=== PATIENT | female | born 1975 | race Caucasian/White ===

== ENCOUNTER 2020-05-09 08:55 | Outpatient (CLI) | payer OTHER, SELFPAY ==
[2020-05-09 09:10] LABS: Basophils Absolute Auto 0.1 K/mm3 (0.0-0.1); Basophils Percent Auto 0.5 % (0.2-1.2); Eosinophils Absolute Auto 0.1 K/mm3 (0-0.3); Eosinophils Percent Auto 0.9 % (0-4.4); Hematocrit 40.5 % (37.0-47.0); Hemoglobin 13.9 g/dL (12.0-15.0); Immature Granulocyte Absolute 0.03 K/mm3 (0.00-0.031); Immature Granulocyte Percent A 0.3 % (0-0.5); Lymphocytes Absolute Auto 2.12 K/mm3 (0.9-3.2); Lymphocytes Percent Auto 23.3 % (18.3-44.2); Mean Corpuscular HGB Conc 34.3 g/dl (32-36); Mean Corpuscular Hemoglobin 31.2 pg (26-34); Mean Corpuscular Volume 90.8 fl (80-100); Mean Platelet Volume 10.7 fl (7.4-10.4); Monocytes Absolute Auto 0.6 K/mm3 (0.1-0.6); Monocytes Percent Auto 6.7 % (2.6-8.5); Neutrophils Absolute Auto 6.2 K/mm3 (1.3-6.7); Neutrophils Percent Auto 68.3 % (45.5-73.1); Platelet Count Result 234 k/mm3 (150-375); Red Blood Count 4.46 M/mm3 (4.2-5.4); White Blood Count 9.1 K/mm3 (4.5-10.0)
[2020-05-09 09:23] LABS: Alanine Aminotransferase 16 U/L (4-35); Albumin Level 4.4 g/dL (3.5-5.1); Alkaline Phosphatase 56 U/L (38-126); Anion Gap 6 mmol/L (8-16); Aspartate Amino Transferase 24 U/L (14-36); Bilirubin,Total 0.4 mg/dL (0.2-1.3); Blood Urea Nitrogen 19 mg/dL (7-17); Calcium 9.6 mg/dL (8.4-10.2); Carbon Dioxide 32 mmol/L (22-30); Chloride 101 mmol/L (98-107); Cholesterol 203 mg/dL (0-200); Estimated Glomerular Filt Rate > 60; Glucose 114 mg/dL (65-105); HDL Direct 53 mg/dL; Potassium 4.7 mmol/L (3.4-5.0); Sodium 139 mmol/L (137-145); Triglycerides 103 mg/dL (<150)
[2020-05-09 09:34] LABS: LDL Cholesterol Direct 135 mg/dL
[2020-05-09 09:53] LABS: Vitamin D 25 Hydroxy 57.9 ng/mL
[2020-05-09 10:06] LABS: Thyroid Stimulating Hormone Reflex 0.763 uIU/mL (0.465-4.68)
== END 2020-05-09 08:56 | disposition home or self-care (01) ==
PROVIDERS: PCP Nurse Practitioner; Visit Provider Nurse Practitioner
DX: Z00.00 Encounter for general adult medical examination without abnormal findings (principal); R53.83 Other fatigue; E55.9 Vitamin D deficiency, unspecified
CPT/HCPCS: 36415; 80053; 80061; 82306; 84443; 85025

== ENCOUNTER 2020-05-16 08:08 | Outpatient (CLI) | payer OTHER, SELFPAY ==
[2020-05-16 08:42] LABS: Hemoglobin A1C 4.9 % (<5.7)
== END 2020-05-16 08:09 | disposition home or self-care (01) ==
PROVIDERS: PCP Nurse Practitioner; Visit Provider Nurse Practitioner
DX: R73.9 Hyperglycemia, unspecified (principal)
CPT/HCPCS: 36415; 83036

== ENCOUNTER 2020-05-22 13:29 | Outpatient (CLI) | payer OTHER, SELFPAY ==
--- NOTE | ~2020-05-22 | XR_ITS ---
EXAMINATION: XR foot LT 2V DATE: 05/22/2020 13:53 INDICATION: Left foot pain at the proximal fifth metatarsal TECHNIQUE: Dorsoplantar and lateral views of the left foot were obtained. COMPARISON: None. FINDINGS: Alignment is normal. No fracture. Mild osteoarthritis at the first metatarsophalangeal joint. Soft ti ssues are unremarkable. IMPRESSION: 1. Mild osteoarthritis at the first metatarsophalangeal joint. No acute osseous abnormality. Reviewed, dictated and finalized at location B.
== END 2020-05-22 13:30 | disposition home or self-care (01) ==
PROVIDERS: PCP Nurse Practitioner; Visit Provider Nurse Practitioner Family
DX: M19.072 Primary osteoarthritis, left ankle and foot (principal)
CPT/HCPCS: 73620

== ENCOUNTER → 2020-07-26 06:43 | Outpatient (CLI) | payer OTHER, SELFPAY ==
[2020-07-26 19:22] LABS: SARS-CoV-2 RNA PCR Negative
== END ==
PROVIDERS: PCP Nurse Practitioner; Visit Provider Internal Medicine Gastroenterology
DX: Z01.812 Encounter for preprocedural laboratory examination (principal); Z20.822 Contact with and (suspected) exposure to COVID-19
CPT/HCPCS: C9803; U0003; U0005

== ENCOUNTER 2020-07-29 00:11 | Day surgery (SDC) | payer OTHER, SELFPAY ==
[2020-07-22 10:10] VITALS: BMI 33.0
[2020-07-29 12:25] VITALS: BMI 33.1
[2020-07-29 12:26] VITALS: BP 138/97; PULSE 87; RESP 14; TEMP 36.5; O2SAT 96
--- NOTE | 2020-07-29 12:38 | WPDANESEPPF ---
Anes - Initial Pre Proc Eval Procedure: Operation Date: 07/29/20 13:15 Proposed Procedures p Screening Colonoscopy - Huey Diaz MD Date/Time: 07/29/20 12:38 Surgeon: Huey Diaz MD Pre Op Diagnosis: neoplasm screening, family hx colon CA Patient Data Age: 44 Gender: F Height: 5 ft 5 in Weight: 90.3 kg Last Vital Signs Temp 36.5 C 07/29/20 12:26 Pulse 87 07/29/20 12:26 Resp 14 07/29/20 12:26 BP 138/97 H 07/29/20 12:26 Pulse Ox 96 07/29/20 12:26 Allergies Allergy/AdvReac Type Severity Reaction Status Date / Time codeine Allergy Severe Difficulty Verified 07/29/20 12:23 Breathing Home Medications Medication Instructions Recorded Confirmed Type cetirizine 10 mg tablet 10 mg PO DAILY 05/08/20 07/29/20 History multivitamin 1 tablet PO DAILY 05/08/20 07/29/20 History phentermine 37.5 mg capsule 37.5 mg PO DAILY #30 cap 07/26/20 07/29/20 Rx Patient hx anesthesia problems: none Family hx anesthesia problems: none PMFSH Past Medical History Medical History Allergies Asthma History of miscarriage History of vaginal delivery Surgical History Surgical History H/O section (~1994) H/O LEEP (~2015) History of appendectomy History of hysterectomy 2016 History of tonsillectomy (~1982) Tubal ligation status (~1998) Family History Family History Father Carcinoma of colon Mother Breast cancer Carcinoma of colon Grandparent Heart disease Social History Social History Smoking status: Never smoker Alcohol intake: unknown Substance use: never Anes - Eval Final PreProcedure Day of Procedure 07/29/20 12:38 Patient weight: obese Heart: regular rate and rhythm Lungs: clear to auscultation Airway: Mallampati scale class 1 Neurological: alert and oriented Last oral intake: >/= 8 hours ASA classification: II Emergent: no Anesthetic plan: proceed Anesthesia type and monitoring: general GIVS and standard monitoring Informed Consent: The patient's anesthetic plan and its attendant risks and benefits were discussed with the patient/family/POA. Questions were solicited and answers provided to the satisfaction of the patient/family/POA.
[2020-07-29] MEDS: LACTATED RINGERS 1,000 ML 150 ML IV CONT (12:45)
--- NOTE | 2020-07-29 13:28 | PM.HPGS ---
History of Present Illness History of Present Illness Consent: Risks, benefits, and alternatives have been discussed and questions answered. Patient agrees to proceed with procedure. Chief complaint: neoplasm screening, family hx colon CA Narrative: Reina Campbell is a 44 year old female with both parents had colon cancer, this is her first colonoscopy Review of Systems Constitutional: Constitutional: Denies headache(s) and Denies weakness Eyes: Eyes: Denies blurry vision ENT: Reports Normal hearing present, Denies headache(s) and Denies neck pain Cardiovascular: Cardiovascular: Denies chest pain and Denies dyspnea Respiratory: Respiratory: Denies dyspnea Gastrointestinal: Gastrointestinal: Reports no additional gastrointestinal complaints Genitourinary: Genitourinary: Denies dysuria Musculoskeletal: Musculoskeletal: Denies neck pain Integumentary/Breasts: Skin/Breast: Denies dry skin Neurologic: Reports Normal hearing present, Denies headache(s) and Denies weakness Psychiatric: Psychiatric: Denies anxiety Endocrine: Endocrine: Denies change in body appearance Hematologic/Lymphatic: Hematologic/Lymphatic: Denies easy bleeding Allergic/Immunologic: Allergic/Immunologic: Denies urticaria PMFSH Past Medical History Medical History Allergies Asthma History of miscarriage History of vaginal delivery Surgical History Surgical History H/O section (~1994) H/O LEEP (~2015) History of appendectomy History of hysterectomy 2016 History of tonsillectomy (~1982) Tubal ligation status (~1998) Family History Family History Father Carcinoma of colon Mother Breast cancer Carcinoma of colon Grandparent Heart disease Social History Social History Smoking status: Never smoker Alcohol intake: unknown Substance use: never Meds Home Medications and Allergies Home Medications Medication Instructions Recorded Confirmed Type cetirizine 10 mg tablet 10 mg PO DAILY 05/08/20 07/29/20 History multivitamin 1 tablet PO DAILY 05/08/20 07/29/20 History phentermine 37.5 mg capsule 37.5 mg PO DAILY #30 cap 07/26/20 07/29/20 Rx Allergies Allergy/AdvReac Type Severity Reaction Status Date / Time codeine Allergy Severe Difficulty Verified 07/29/20 12:23 Breathing Vital Signs Vital Signs - 24 hr 07/29/20 12:26 Temperature 97.7 F Pulse Rate 87 Respiratory Rate 14 Blood Pressure 138/97 H Pulse Oximetry 96 Exam Const: General: comfortable and no acute distress HENMT: General nose exam: Normal nares present Eyes: General: appearance normal, both eyes and all related structures Neck: Neck: no JVD Resp: Auscultation: clear to auscultation bilaterally Cardio: Rate: regular rate Rhythm: regular rhythm GI: Inspection: non-distended GI Palp: Yes Soft to palpation Skin: General skin exam: normal color Neuro: General: gait normal Speech: normal speech Extrem: General: normal to inspection Psych: Mental Status: mental status grossly normal Assessment and Plan Assessment and plan (1) Family history of colon cancer: Code(s): Z80.0 - Family history of malignant neoplasm of digestive organs Status: Acute Assessment and Plan: colonoscopy today
[2020-07-29 13:52] VITALS: BP 79/47; PULSE 73; RESP 20; O2SAT 100
[2020-07-29 14:02] VITALS: BP 104/71; PULSE 73; RESP 27; O2SAT 97
[2020-07-29 14:12] VITALS: BP 117/79; PULSE 60; RESP 25; O2SAT 100
== END 2020-07-29 14:21 | disposition home or self-care (01) ==
PROVIDERS: PCP Nurse Practitioner; Visit Provider Internal Medicine Gastroenterology
PROC: 0DJD8ZZ Inspection of Lower Intestinal Tract, Via Natural or Artificial Opening Endoscopic (ICD-10-PCS; CPT 45378; principal; 2020-07-29 13:15)
DX: Z12.11 Encounter for screening for malignant neoplasm of colon (principal); Z80.0 Family history of malignant neoplasm of digestive organs; K64.8 Other hemorrhoids; K57.30 Diverticulosis of large intestine without perforation or abscess without bleeding; J45.909 Unspecified asthma, uncomplicated; Z90.710 Acquired absence of both cervix and uterus; Z90.49 Acquired absence of other specified parts of digestive tract
CPT/HCPCS: 45378; J2704; J7120

== ENCOUNTER 2020-08-20 16:38 | Outpatient (CLI) | payer OTHER, SELFPAY ==
--- NOTE | ~2020-08-20 | MM_ITS ---
EXAMINATION: MM screening sharri BI w brittanie HISTORY: Screening mammogram, family history of breast cancer in her mother. TECHNIQUE: Craniocaudal and mediolateral oblique 3-D tomosynthesis images were obtained and synthetic 2-D images were generated. CAD analysis was submitted and interpreted. COMPARISON: No prior mammogram is available for comparison at this institution. BREAST PARENCHYMAL COMPOSITION: The breasts are almost entirely fatty. FINDINGS: There is no evidence of suspicious mass, calcification, or architectural distortion to sugg est malignancy in either breast. IMPRESSION: 1. No mammographic evidence of malignancy. 2. Recommend routine screening mammography in one year. BI-RADS Category 1: Negative Reviewed, dictated and finalized at location A.
== END 2020-08-20 16:39 | disposition home or self-care (01) ==
LOC: ANHIMG 16:41
PROVIDERS: PCP Nurse Practitioner; Visit Provider Student in an Organized Health Care Education/Training Program
DX: Z12.31 Encounter for screening mammogram for malignant neoplasm of breast (principal)
CPT/HCPCS: 77063; 77067

== ENCOUNTER 2021-10-13 09:21 | Outpatient (CLI) | payer OTHER, SELFPAY ==
--- NOTE | ~2021-10-13 | MM_ITS ---
EXAMINATION: MM screening sharri BI w brittanie HISTORY: Screening mammogram, family history of breast cancer in her mother. TECHNIQUE: Craniocaudal and mediolateral oblique 3-D tomosynthesis images were obtained and synthetic 2-D images were generated. CAD analysis was submitted and interpreted. COMPARISON: 08/20/2020 BREAST PARENCHYMAL COMPOSITION: The breasts are almost entirely fatty. FINDINGS: RIGHT BREAST: There is no suspicious mass, calcification, or architectural distortion to suggest anna gnancy. There has been no significant interval change. LEFT BREAST: An asymmetry is present in the middle third of the inner breast on the craniocaudal view . IMPRESSION: 1. Left breast asymmetry. 2. Additional mammographic views and possible breast ultrasound are recommended. BI-RADS Category 0: Incomplete: Needs additional imaging evaluation. Reviewed, dictated and finalized at location A. IMPRESSION: 1. Left breast asymmetry. 2. Additional mammographic views and possible breast ultrasound are recommended . BI-RADS Category 0: Incomplete: Needs additional imaging evaluation.
== END 2021-10-13 09:22 | disposition home or self-care (01) ==
LOC: ANHIMG 09:22
PROVIDERS: PCP Family Medicine; Visit Provider Student in an Organized Health Care Education/Training Program
DX: Z12.31 Encounter for screening mammogram for malignant neoplasm of breast (principal); R92.8 Other abnormal and inconclusive findings on diagnostic imaging of breast
CPT/HCPCS: 77063; 77067

== ENCOUNTER 2021-10-28 11:22 | Outpatient (CLI) | payer OTHER, SELFPAY ==
--- NOTE | ~2021-10-28 | MMUS_ITS ---
EXAMINATION: MM diagnostic sharri LT w brittanie, US breast LT limited HISTORY: Follow-up left breast asymmetry TECHNIQUE: Additional 3-D tomosynthesis images of the left breast were performed and synthetic 2-D im ages were generated. CAD analysis was submitted and interpreted. High resolution Limited left breast ultrasound was performed. COMPARISON: Comparison to multiple prior studies sequentially, with oldest reviewed study dated 08/20. BREAST PARENCHYMAL COMPOSITION: Breast composed of scattered areas of fibroglandular density FINDINGS: MAMMOGRAPHIC FINDINGS: There are no suspicious masses, calcifications or architectural distortion in the left breast to sugg est malignancy. ULTRASOUND: Limited left breast ultrasound: Normal heterogeneous echotexture without focal solid or cystic mass. IMPRESSION: 1. No evidence for malignancy in the left breast. 2. Routine yearly screening mammogram and regular clinical breast examination are recommended. BI-RADS Category 1: Negative Reviewed, dictated and finalized at location A. IMPRESSION: 1. No evidence for malignancy in the left breast. 2. Routine yearly screening mammogram and regular clinical breast examination a re recommended. BI-RADS Category 1: Negative
== END 2021-10-28 11:23 | disposition home or self-care (01) ==
LOC: ANHIMG 11:23
PROVIDERS: PCP Family Medicine; Visit Provider Student in an Organized Health Care Education/Training Program
DX: R92.8 Other abnormal and inconclusive findings on diagnostic imaging of breast (principal)
CPT/HCPCS: 76642; 77061; 77065; G0279

== ENCOUNTER 2021-11-24 08:44 | Outpatient (CLI) | payer OTHER, SELFPAY ==
[2021-11-24 08:55] LABS: Basophils Absolute Auto 0.1 K/mm3 (0.0-0.1); Basophils Percent Auto 0.7 % (0.2-1.2); Eosinophils Percent Auto 0.4 % (0-4.4); Hematocrit 36.5 % (37.0-47.0); Hemoglobin 12.6 g/dL (12.0-15.0); Immature Granulocyte Absolute 0.02 K/mm3 (0.00-0.031); Immature Granulocyte Percent A 0.3 % (0-0.5); Lymphocytes Absolute Auto 1.78 K/mm3 (0.9-3.2); Lymphocytes Percent Auto 24.2 % (18.3-44.2); Mean Corpuscular HGB Conc 34.5 g/dl (32-36); Mean Corpuscular Hemoglobin 31.1 pg (26-34); Mean Corpuscular Volume 90.1 fl (80-100); Mean Platelet Volume 11.7 fl (7.4-10.4); Monocytes Absolute Auto 0.5 K/mm3 (0.1-0.6); Monocytes Percent Auto 6.5 % (2.6-8.5); Neutrophils Percent Auto 67.9 % (45.5-73.1); Platelet Count Result 202 k/mm3 (150-375); Red Blood Count 4.05 M/mm3 (4.2-5.4); Red Cell Distribution Width 12.4 % (11.5-14.5); White Blood Count 7.4 K/mm3 (4.5-10.0)
[2021-11-24 09:16] LABS: Alanine Aminotransferase 17 U/L (6-35); Albumin Level 4.6 g/dL (3.5-5.1); Alkaline Phosphatase 60 U/L (38-126); Anion Gap 11 mmol/L (8-16); Aspartate Amino Transferase 22 U/L (14-36); Bilirubin,Total 0.5 mg/dL (0.2-1.3); Blood Urea Nitrogen 13 mg/dL (7-17); Calcium 9.3 mg/dL (8.4-10.2); Carbon Dioxide 25 mmol/L (22-30); Chloride 104 mmol/L (98-107); Cholesterol 227 mg/dL (0-200); Estimated Glomerular Filt Rate > 60; Glucose 96 mg/dL (65-110); HDL Direct 54 mg/dL; Sodium 140 mmol/L (137-145); Triglycerides 167 mg/dL (<150)
[2021-11-24 09:27] LABS: LDL Cholesterol Direct 133 mg/dL
[2021-11-24 09:49] LABS: Vitamin D 25 Hydroxy 47.1 ng/mL
== END 2021-11-24 08:45 | disposition home or self-care (01) ==
LOC: ANHLAB 08:46
PROVIDERS: PCP Family Medicine; Visit Provider Nurse Practitioner
DX: Z13.6 Encounter for screening for cardiovascular disorders (principal); E55.9 Vitamin D deficiency, unspecified; Z13.220 Encounter for screening for lipoid disorders
CPT/HCPCS: 36415; 80053; 80061; 82306; 85025

== ENCOUNTER → 2022-06-26 15:18 | Outpatient (CLI) | payer OTHER, SELFPAY ==
--- NOTE | ~2022-06-26 | XR_ITS ---
AP view of the pelvis and AP and lateral views of the left hip Clinical history: Pain Findings: No acute fracture or dislocation is seen. Osseous alignment is anatomic. Minimal degenerati ve change of both hip joints noted. Soft tissues are unremarkable. Impression: Minimal degenerative change of both hip joints. Reviewed, dictated and finalized at location . Impression: Minimal degenerative change of both hip joints.
== END ==
PROVIDERS: PCP Nurse Practitioner; Visit Provider Nurse Practitioner
DX: M25.552 Pain in left hip (principal)
CPT/HCPCS: 73502

== ENCOUNTER 2022-08-04 14:30 | Outpatient (RCR) | payer OTHER, SELFPAY ==
--- NOTE | 2022-07-09 07:59 | PTOPEVAL1 ---
Assessment and note entered by Asif Hilario, PT Evaluation Information Assessment Status Evaluation Diagnosis L hip pain Onset a couple months ago Subjective Information Patient reports a couple months ago she started feeling pain in her L hip after getting up from her couch. She has had increased pain with radiating symptoms. She is fine with walking, but increased pain with sitting for prolonged feeling of time. Assessment PT Clinical Summary Reina is a 46 year old fmeale coming into the clinic with L hip pain of about 2 months duration. She has a positive COLEMAN sign, slight tightness in her L piriformis, appeared out of alignment of her SI joint, and minimal weakness in her hips. Physical therapy will work on correcting deficits and see if keeping her in SI alignment will help with pain reduction. Modalities and manual therapy as needed for pain control. Plan of Care Interventions Electrical Stimulation,Gait Training,Hot Pack/Cold Pack,Manual Therapy,Neuro Re-education,Patient/ Caregiver Education,Therapeutic Activities, Therapeutic Exercise,Ultrasound Other Interventions taping, cupping, and IASTM PT Services Indicated Yes Treatment Frequency and 2x/wk for 4 weeks Duration These treatments will address the objective and functional deficits as defined above. The patient will be advanced safely and appropriately in order for the patient to progress towards his/her prior level of function. Additional exercises will be introduced and as well as a comprehensive home exercise program upon discharge, if needed, ?to ensure carryover of functional gains achieved in the clinic. This treatment plan has been reviewed and agreement upon by the patient.
--- NOTE | 2022-07-20 13:02 | PCPTNOTE ---
Patient called & cancelled scheduled appointment this date due to scheudling issues
--- NOTE | 2022-08-04 15:00 | PTOPDC ---
Assessment and note entered by Asif Hilario, PT Evaluation Information Assessment Status Discharge Diagnosis L hip pain Onset a couple months ago Subjective Information Patient reports she still has tingling going down into her foot, but the pain is significantly improved able to ride in the car to [place] and back without increased pain, which she did not think was going to happen. Reported Pain Level Pain Score 0: Self Report Additional Pain Score Comments no pain currently. Assessment PT Clinical Summary Reina is a 46 year old female coming into the clinic with a diagnosis of L hip pain. She was evaluated on 07/07/22 and attended 8 visits. She met her strength and education goals, but not flexibility, pain, or centralization. Patient reports she thinks she will continue to get better doing the exercises on her own. Discharging patient from therapy at this time. Plan of Care PT Services Indicated No
== END 2022-08-05 15:06 | disposition home or self-care (01) ==
LOC: ANHPT 14:30
PROVIDERS: PCP Nurse Practitioner; Visit Provider Nurse Practitioner
DX: M25.552 Pain in left hip (principal)
CPT/HCPCS: 97110; 97112; 97140; 97161; 97530

== ENCOUNTER 2022-11-11 14:19 | Outpatient (CLI) | payer OTHER, SELFPAY ==
--- NOTE | ~2022-11-11 | MM_ITS ---
EXAMINATION: MM screening sharri BI w brittanie HISTORY: Screening mammogram TECHNIQUE: Craniocaudal and mediolateral oblique 3-D tomosynthesis images were obtained and synthetic 2-D images were generated. CAD analysis was submitted and interpreted. COMPARISON: 10/28/2021 diagnostic left mammogram and limited left breast ultrasound examination, repor ariel negative 10/13/2021, 08/20/2020 bilateral screening mammogram examinations BREAST PARENCHYMAL COMPOSITION: The breasts are almost entirely fatty. FINDINGS: There is no evidence of suspicious mass, calcification, or architectural distortion to sugg est malignancy in either breast. There has been no suspicious interval change. IMPRESSION: 1. No mammographic evidence of malignancy. 2. Recommend routine screening mammography in one year. BI-RADS Category 1: Negative Reviewed, dictated and finalized at location A.
== END 2022-11-11 14:20 | disposition home or self-care (01) ==
LOC: ANHIMG 14:26
PROVIDERS: PCP Nurse Practitioner; Visit Provider Family Medicine
DX: Z12.31 Encounter for screening mammogram for malignant neoplasm of breast (principal)
CPT/HCPCS: 77063; 77067

== ENCOUNTER 2022-11-19 13:17 | Outpatient (CLI) | payer OTHER, SELFPAY ==
--- NOTE | 2022-11-19 14:54 | ECG_ITS ---
Measurements Intervals [place] Rate: 58 P: 55 [place]: 157 QRS: 16 QRSD: 88 T: 38 QT: 386 QTc: 379 Interpretive Statements SINUS BRADYCARDIA BASELINE ARTIFACT- I, II, III, AVR, AVL, AVF BORDERLINE ECG NO PREVIOUS ECG AVAILABLE FOR COMPARISON Electronically Signed On 11-19-2022 16:05:33 CDT by New Rodriguez D.O.
[2022-11-19 15:57] LABS: Hematocrit 37.5 % (37.0-47.0); Hemoglobin 12.4 g/dL (12.0-15.0)
== END 2022-11-19 13:18 | disposition home or self-care (01) ==
PROVIDERS: Anesthesiology; PCP Nurse Practitioner; Visit Provider Surgery Plastic and Reconstructive Surgery
DX: Z41.1 Encounter for cosmetic surgery (principal); R94.31 Abnormal electrocardiogram [ECG] [EKG]
CPT/HCPCS: 36415; 85014; 85018; 93005

== ENCOUNTER 2022-11-27 02:16 | Day surgery (SDC) | payer OTHER, SELFPAY ==
[2022-11-19 12:37] VITALS: BMI 31.6
--- NOTE | 2022-11-19 12:41 | PC.NURSE ---
Report to the Outpatient Waiting Room, entrance under the green pavilion located off [facility], at time 7:00 on date 11/27/22. Planned Procedure Time: 9:00. Time changes happen often and if your time is changed the preop area will call you the afternoon before. - You and your visitor will be asked to self-screen and do not enter if you have any COVID symptoms. - A mask is optional within the hospital at this time. Patients may have clear liquids (water, carbonated beverages, clear teas, apple juice) until 3 hours prior to surgery (6:00) with a maximum of 20 ounces. - No food from midnight until time of surgery Take the following medications with a SIP of water the morning of surgery: NONE DO NOT STOP ANY OF YOUR OTHER PRESCRIPTION MEDICATIONS PRIOR TO SURGERY ?EXCEPT THE FOLLOWING Medications to discontinue per physician: VITAMINS Date to take last dose: PT HAS ALREADY STOPPED Please no make-up, nail burmese, hairspray, perfume, deodorant, or body powder the day of surgery. No jewelry (including any body piercings) or valuables the day of surgery, leave them at home. Please take a shower or bath the night before, or the morning of, surgery with an antibacterial soap. Wear comfortable, loose fitting clothing. - Jewelry must be removed prior to entering the operating room. Rings and piercings that are not removed may be cut off. - The hospital will not accept responsibility for valuables. - Please leave all valuables, including medications, at home the day of surgery. If you are going home after surgery, a licensed salesperson driver must drive you home. - NO public transportation without another adult if you receive anesthesia. - We recommend that an adult stay with you for 24 hours following discharge. - We also recommend that you do not drive, make important decision, drink alcoholic beverages, or take any drugs that were not prescribed by your health care provider for at least 24 hours after your discharge time. Follow any additional instructions given to you from your surgeon. If you or anyone in your household have experienced Covid symptoms in the past week, please notify your surgeon or the nurse liaison at the phone number below for possible testing. Telephone instructions given to PT - BOSTON MCRAE and asked if any additional questions and then verbalized understanding. Patient advised to call surgeon office or pre surgery nurse liaison [phone] if any additional questions.
[2022-11-27] VITALS (8 sets, daily range): BP systolic 111–154; BP diastolic 62–95; PULSE 59–76; RESP 14; TEMP 36.2; O2SAT 97–100
[2022-11-27 07:33] LABS: Urine Cotinine NEGATIVE
[2022-11-27] MEDS: LACTATED RINGERS 1,000 ML 30 ML IV CONT ×2 (08:20→14:50)
--- NOTE | 2022-11-27 08:26 | WPDANESEPPF ---
Anes - Initial Pre Proc Eval Procedure: Operation Date: 11/27/22 09:00 Proposed Procedures p Bilateral Breast Mastopexy with Galaflex - Adi Hernandez MD s Bilateral Thigh Lift - Adi Hernandez MD Date/Time: 11/27/22 08:26 Surgeon: Adi Hernandez MD Pre Op Diagnosis: Skin laxity and breast ptosis Patient Data Age: 46 Gender: F Height: 1.65 m Weight: 91.4 kg Last Vital Signs Temp 97.2 F L 11/27/22 08:17 Pulse 65 11/27/22 08:17 Resp 14 11/27/22 08:17 BP 149/82 H 11/27/22 08:17 Pulse Ox 97 11/27/22 08:17 O2 Del Method Room Air 11/27/22 08:17 Allergies Allergy/AdvReac Type Severity Reaction Status Date / Time codeine Allergy Severe Difficulty Verified 11/27/22 08:22 Breathing Home Medications Medication Instructions Recorded Confirmed Type cetirizine 10 mg tablet 10 mg PO DAILY 05/08/20 11/19/22 History multivitamin 1 tablet PO DAILY 05/08/20 11/19/22 History Laboratory Tests 11/27/22 07:04 Cotinine Negative Patient hx anesthesia problems: other (states slow to wake up) Family hx anesthesia problems: none Results Review: All pre-operative results and documents have been reviewed as part of the pre-operative evaluation. [facility] Past Medical History Medical History Allergies Asthma Breast ptosis History of miscarriage History of vaginal delivery Surgical History Surgical History H/O section (~1994) H/O LEEP (~2015) History of appendectomy History of hysterectomy 2016 History of tonsillectomy (~1982) Tubal ligation status (~1998) Family History Family History Father Carcinoma of colon Mother Breast cancer Carcinoma of colon Grandparent Heart disease Social History Social History Smoking status: Never smoker Alcohol intake: current Alcohol use details: RARE Substance use: never Substance use type: does not use Lack of Transportation: No Lack of Food: Never True Current Housing: I Have Housing Concerned About Future Housing: No Difficulty Paying Gas/Electric Bills: No Difficulty Paying for Meds: No Currently Unemployed: No Education: Associate Degree Difficulty w/ Childcare or Family Care: No Living arrangements: with family Occupation/Education: occupation 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 Gender identity (if verbalized by the patient): Female Spiritual care concerns: No Agree to blood products: Yes Anes - Eval Final PreProcedure Day of Procedure 11/27/22 08:26 Patient weight: obese Heart: regular rate and rhythm Lungs: clear to auscultation Airway: Mallampati scale class II Neurological: alert and oriented Last oral intake: >/= 8 hours ASA classification: II Emergent: no Anesthetic plan: proceed Anesthesia type and monitoring: general LMA and ETT and standard monitoring Results Review: All pre-operative results and documents have been reviewed as part of the pre-operative evaluation. Informed Consent: The patient's anesthetic plan and its attendant risks and benefits were discussed with the patient/family/POA. Questions were solicited and answers provided to the satisfaction of the patient/family/POA.
--- NOTE | 2022-11-27 08:58 | P.OP_ITS ---
Procedure Note - Detailed Date of Procedure 11/27/22 Pre-op Diagnosis Skin laxity and breast ptosis Post-op Diagnosis Same Procedure Performed 1. Bilateral mastopexy 2. Medial thigh lift Surgeon Adi Hernandez MD Anesthesia General Findings Bilateral superior pedicile, invert T mastopexy Galaflex REF# [id number] Lot [id number] Lateral breast / chest wall lipoaspirate: 300 cc Bilateral thigh lipoaspirate: 1,200 cc Description of Procedure She is here today for the above. Previously and again today the risks, benefits, alternatives were discussed in extensive detail. I wanted her to be very realistic about the risks involved as well as expectations. We discussed aftercare and what to monitor for. Discussed asymmetry and limitations unique to her anatomy. Made sure answered all of her questions to her satisfaction today and consent was obtained. Marked in the preoperative holding area with their verification. The patient was taken to the operating room placed supine on the operating table. Anesthesia was provided by anesthesiology. A surgical time-out was taken. She was prepped and draped in a standard sterile fashion. Thighs Stab incisions were made and I tumesced with a tumescent solution. Once adequate time for hemostasis suction lipectomy was with a 4 mm basket cannula based on S.A.F.E. technique. This was completed based on preoperative planning, intraoperative observation, and rolling pinch test which was in full agreement. I completely de-fatted the planned resection area and a strip avulsion technique was completed. Starting proximal to distal a 10 blade was used to excise the intervening skin and this was tacked as we proceed to ensure good closure. This was closed using a 2-0 Quill, 3-0 strata fix, running subcuticular 4-0 Monocryl, and tissue glue. Breast Eleven blade was utilized to make a stab incision and infiltrated with low volume tumescent solution. The breast was tailor tacked into place. I tailor tacked the breast into position. Placed her in a sitting position. Verified the nipple-areolar location based on preoperative planning as well as intraoperative observations and measurements in full agreement. She was placed supine. I de-epithelialized the pedicle. I then de-epithelialized the inferior breast tissue to create an autoaugmentation flap based on intercostal power screwdriver operator. I elevated medial and lateral tissue flaps as well for planned closure. The autoaugmentation flap was sutured to the chest wall with 2-0 PDS. Galaflex was soaking on the back table and trimmed / placed. Sutured into place with 2-0 Vicryl. I closed along the IMF with 2-0 Stratafix. Along the vertical with 2-0 PDS. I closed around the Ahsan with 3-0 strata fix. 3-0 Monocryl along the vertical. 3-0 Stratafix along the IMF. I finally closed everything with running subcuticular 4-0 Monocryl and tissue glue. Lateral breast secured with hemostatic net with 2-0 Nylon in 2 rows bilateral. Dressings / surgical bra were placed. Tolerated the procedure well. Taken to the PACU without difficulty. All instrument sponge counts were correct at the end of the case. Estimated Blood Loss 125 Drains No Packing No Pathology None sent Complications No immediate complications Condition Stable Disposition PACU
--- NOTE | 2022-11-27 08:58 | WPDHPUPDATE1 ---
History and Physical Update Update Date/Time: 11/27/22 08:58 History and Physical has been reviewed, including an updated exam of the patient. There are NO changes in the patient's condition. Risks, benefits, and alternatives have been discussed and questions answered. Patient agrees to proceed with procedure.
[2022-11-27] MEDS: ceFAZolin SODIUM 1 GM VIAL 2 GM IV PUSH (13:03)
[2022-11-27] MEDS: fentaNYL CITRATE INJ (*CRX) 100 MCG/2 ML VIAL 25 MCG IV PUSH ×2 (15:28→15:37)
[2022-11-27] MEDS: oxyCODONE HCL (*CRX) 5 MG TAB IR PO (16:26)
== END 2022-11-27 16:48 | disposition home or self-care (01) ==
PROVIDERS: PCP Nurse Practitioner; Visit Provider Surgery Plastic and Reconstructive Surgery
PROC: (CPT 19316; principal; 2022-11-27 09:00)
PROC: (CPT 15877; 2022-11-27 09:00)
DX: Z41.1 Encounter for cosmetic surgery (principal); N64.81 Ptosis of breast; L57.4 Cutis laxa senilis
CPT/HCPCS: 19316; 15832; 80307; A9270; J0171; J0330; J0690; J1100; J1580; J2250; J2405; J2704; J3010; J7120

== ENCOUNTER 2023-04-05 10:54 | Outpatient (CLI) | payer OTHER, SELFPAY ==
[2023-04-05 11:07] LABS: Hematocrit 39.4 % (37.0-47.0); Hemoglobin 13.2 g/dL (12.0-15.0)
== END 2023-04-05 10:55 | disposition home or self-care (01) ==
LOC: ANHLAB 10:56
PROVIDERS: PCP Nurse Practitioner; Visit Provider Anesthesiology
DX: Z41.1 Encounter for cosmetic surgery (principal)
CPT/HCPCS: 36415; 85014; 85018

== ENCOUNTER 2023-04-13 00:12 | Day surgery (SDC) | payer OTHER, SELFPAY ==
[2023-04-01 12:26] VITALS: BMI 33.3
--- NOTE | 2023-04-01 12:26 | PC.NURSE ---
Report to the Outpatient Waiting Room, entrance under the green pavilion located off [facility], at time 0600 on date 04/13/23. Planned Procedure Time: 0730. Time changes happen often and if your time is changed the preop area will call you the afternoon before. - You and your visitor will be asked to self-screen and do not enter if you have any COVID symptoms. - A mask is optional within the hospital at this time. Patients may have clear liquids (water, carbonated beverages, clear teas, apple juice) until 3 hours prior to surgery with a maximum of 20 ounces. - No food from midnight until time of surgery Take the following medications with a SIP of water the morning of surgery: NONE DO NOT STOP ANY OF YOUR OTHER PRESCRIPTION MEDICATIONS PRIOR TO SURGERY ?EXCEPT THE FOLLOWING Medications to discontinue per physician: VITAMINS Date to take last dose: PT HAS ALREADY STOPPED Please no make-up, nail italian, hairspray, perfume, deodorant, or body powder the day of surgery. No jewelry (including any body piercings) or valuables the day of surgery, leave them at home. Please take a shower or bath the night before, or the morning of, surgery with an antibacterial soap. Wear comfortable, loose fitting clothing. - Jewelry must be removed prior to entering the operating room. Rings and piercings that are not removed may be cut off. - The hospital will not accept responsibility for valuables. - Please leave all valuables, including medications, at home the day of surgery. If you are going home after surgery, a licensed haul truck driver must drive you home. - NO public transportation without another adult if you receive anesthesia. - We recommend that an adult stay with you for 24 hours following discharge. - We also recommend that you do not drive, make important decision, drink alcoholic beverages, or take any drugs that were not prescribed by your health care provider for at least 24 hours after your discharge time. Follow any additional instructions given to you from your surgeon. If you or anyone in your household have experienced Covid symptoms in the past week, please notify your surgeon or the nurse liaison at the phone number below for possible testing. Telephone instructions given to PT - BOSTON MCRAE and asked if any additional questions and then verbalized understanding. Patient advised to call surgeon office or pre surgery nurse liaison [phone] if any additional questions.
[2023-04-13] VITALS (11 sets, daily range): BP systolic 102–163; BP diastolic 45–80; PULSE 64–87; RESP 16–22; TEMP 36.1–36.5; O2SAT 96–99
[2023-04-13 06:31] LABS: Urine Cotinine NEGATIVE
--- NOTE | 2023-04-13 06:31 | P.PNAN_ITS ---
Anes - Initial Pre Proc Eval Procedure: Operation Date: 04/13/23 07:30 Proposed Procedures p Katia Ferrari Abdominoplasty with Liposuction, - Adi Hernandez MD s Bilateral Brachioplasty, - Adi Hernandez MD s Bilateral Breast Augmentation - Adi Hernandez MD Date/Time: 04/13/23 06:31 Surgeon: Adi Hernandez MD Pre Op Diagnosis: skin laxity, micromastia Patient Data Age: 47 Gender: F Height: 1.65 m Weight: 91 kg Allergies Allergy/AdvReac Type Severity Reaction Status Date / Time codeine Allergy Severe Difficulty Verified 04/13/23 06:12 Breathing Home Medications Medication Instructions Recorded Confirmed Type cetirizine 10 mg tablet 10 mg PO DAILY 05/08/20 04/13/23 History multivitamin 1 tablet PO DAILY 05/08/20 04/13/23 History Laboratory Tests 04/13/23 06:15 Cotinine Negative Patient hx anesthesia problems: none Family hx anesthesia problems: none Results Review: All pre-operative results and documents have been reviewed as part of the pre- operative evaluation. FORMERLY [facility], [facility] Past Medical History Medical History Allergies Asthma Breast ptosis History of miscarriage History of vaginal delivery Surgical History Surgical History H/O section (~1994) H/O LEEP (~2015) History of appendectomy History of hysterectomy 2016 History of tonsillectomy (~1982) Tubal ligation status (~1998) Family History Family History Father Carcinoma of colon Mother Breast cancer Carcinoma of colon Grandparent Heart disease Social History Social History Smoking status: Never smoker Alcohol intake: current Alcohol use details: RARE Substance use: never Substance use type: does not use Lack of Transportation: No Lack of Food: Never True Current Housing: I Have Housing Concerned About Future Housing: No Difficulty Paying Gas/Electric Bills: No Difficulty Paying for Meds: No Currently Unemployed: No Education: Associate Degree Difficulty w/ Childcare or Family Care: No Living arrangements: with family Occupation/Education: occupation Additional occupation/education comments: [employer] Gender identity (if verbalized by the patient): Female Spiritual care concerns: No Agree to blood products: Yes Anes - Eval Final PreProcedure Day of Procedure 04/13/23 06:31 Patient weight: obese Heart: regular rate and rhythm Lungs: clear to auscultation Airway: Mallampati scale class II Neurological: alert and oriented Last oral intake: >/= 8 hours ASA classification: II Emergent: no Anesthetic plan: proceed Anesthesia type and monitoring: general ETT and standard monitoring Results Review: All pre-operative results and documents have been reviewed as part of the pre- operative evaluation. Informed Consent: The patient's anesthetic plan and its attendant risks and benefits were discussed with the patient/family/POA. Questions were solicited and answers provided to the satisfaction of the patient/family/POA.
[2023-04-13] MEDS: LACTATED RINGERS 1,000 ML 30 ML IV CONT ×4 (06:51→18:12)
[2023-04-13] MEDS: SCOPOLAMINE 1 MG PATCH 1 PATCH TRANSDERM (07:10)
--- NOTE | 2023-04-13 07:19 | WPDHPUPDATE1 ---
History and Physical Update Update Date/Time: 04/13/23 07:19 History and Physical has been reviewed, including an updated exam of the patient. There are NO changes in the patient's condition. Risks, benefits, and alternatives have been discussed and questions answered. Patient agrees to proceed with procedure.
[2023-04-13] MEDS: ceFAZolin 2 GM/D5W 50 ML 2 GM/50 ML BAG IVPB (08:34)
[2023-04-13] MEDS: TRANEXAMIC ACID 1,000MG/ISO100 1,000 MG/100 ML BAG 200 MG IVPB (08:55)
[2023-04-13] MEDS: LACTATED RINGERS IRRIG 1,000 ML, LIDOCAINE HCL 1% LOCAL INJ 50 ML, EPINEPHrine HCL INJ ... INFILTRATE ×4 (09:43→14:13)
[2023-04-13] MEDS: NACL 0.9% IRRIG POUR BOTTLE 900 ML, GENTAMICIN SULFATE INJ 160 MG, ceFAZolin 2 GM, POVI... IRRIGATION (09:45)
[2023-04-13] MEDS: BUPivacaine HCL 0.5% PF 30 ML VIAL 60 ML INFILTRATE (10:44)
[2023-04-13] MEDS: ceFAZolin SODIUM 1 GM VIAL IV PUSH (12:30)
[2023-04-13] MEDS: LIDO 1%/EPINEPHRINE 1:100,000 50 ML VIAL 60 ML INFILTRATE (14:14)
--- NOTE | 2023-04-13 15:58 | W.PM.PROC2 ---
Procedure Note - Detailed Date of Procedure 04/13/23 Pre-op Diagnosis skin laxity, micromastia Post-op Diagnosis Same Procedure Performed 1. Bilateral augmentation mammaplasty 2. Bilateral brachioplasty 3. Progressive tension abdominoplasty with suction lipectomy Surgeon Adi Hernandez MD Anesthesia General Findings Bilateral Nohemi Payne SoftTouch 490cc Right - REF# [id number] SN [id number] Left - REF# [id number] SN [id number] Lipoaspirate: 3,450 cc Tissue remove abdomen: 3,999 grams Description of Procedure They are here today for the above procedures. Previously and again today the risks, benefits, alternatives were discussed in extensive detail. I wanted them to be very realistic about the risks involved as well as expectations. We discussed aftercare and what to monitor for. I was very upfront about the risks of wound breakdown leading to loss of skin, open wounds, and need for additional procedures with permanent abdominal deformity. We discussed DVT/PE risks and management. Made sure answered all of their questions to their satisfaction today and consent was obtained. They were marked in the preoperative holding area with their verification. The patient was taken to the operating room. Anesthesia was provided by anesthesiology. A Delatorre catheter was started. Posterior Placed prone on the operating room table with care taken to protect from injury. Prepped and draped in a standard sterile fashion. A surgical time-out was taken. Stab incisions were made and tumescent solution was infiltrated. Once adequate time was allowed for hemostasis a 5mm basket and 3mm multi hole cannula were utilized to complete suction lipectomy based on S.A.F.E. technique in multiple planes and passes. Suction lipectomy continued to result based on pre-operative planning, intra-operative observation, and rolling pinch test which were in full agreement. Patient was then placed supine with care taken to protect from injury. Breast Tumescent was utilized laterally for each breast with limited volume. Tegaderm nipple Cano were placed. A 15 blade used to make an incision along the inframammary fold (previous scar excised at this site). Dissection was continued at 45 degree angle until the chest wall as identified. I incised the pectoralis major along its inferior border and completely released the inferior border leaving the medial border intact. I created a subpectoral pocket in the appropriate dimensions based on our preoperative planning for the implant. I then copiously irrigated with saline solution and verified a strict hemostasis. Next the use a triple antibiotic and Betadine containing solution to irrigate the pocket. I washed my gloves with the triple antibiotic and Betadine solution. We washed the implant immediately upon opening it with this solution and only opened it when we needed it. I used implant funnel and no-touch technique. The implant was introduced into the pocket using the funnel. Having verified positioning of the implant this was closed using 2-0 PDS followed by 3-0 Monocryl in a running subcuticular 4-0 Monocryl followed by tissue glue. Arms Stab incisions were made and I tumesced with a tumescent solution. Once adequate time for hemostasis suction lipectomy was with a 5 mm basket cannula based on S.A.F.E. technique. This was completed based on preoperative planning, intraoperative observation, and rolling pinch test which was in full agreement. I completely de-fatted the planned resection area and a strip avulsion technique was completed. Starting proximal to distal a 10 blade was used to excise the intervening skin and this was tacked as we proceed to ensure good closure. This was closed using a 2-0 Quill, 3-0 strata fix, running subcuticular 4-0 Monocryl, and tissue glue. Abdomen I placed the patient in a flexed position to verify the upper and lower markings would reach. I then placed supine. A o
[2023-04-13] MEDS: fentaNYL CITRATE INJ (*CRX) 100 MCG/2 ML VIAL 25 MCG IV PUSH ×4 (16:44→16:56)
[2023-04-13] MEDS: ONDANSETRON INJ 4 MG/2 ML VIAL IV PUSH (17:30)
[2023-04-13] MEDS: PROMETHAZINE HCL 25 MG/ML AMPUL 12.5 MG IV PUSH (18:11)
== END 2023-04-13 19:30 | disposition home or self-care (01) ==
PROVIDERS: PCP Nurse Practitioner; Visit Provider Surgery Plastic and Reconstructive Surgery
PROC: (CPT 19325; principal; 2023-04-13 07:30)
PROC: (CPT 15836; 2023-04-13 07:30)
PROC: (CPT 19325; 2023-04-13 07:30)
DX: Z41.1 Encounter for cosmetic surgery (principal); N64.82 Hypoplasia of breast; L57.4 Cutis laxa senilis; E66.9 Obesity, unspecified; Z68.34 Body mass index [BMI] 34.0-34.9, adult
CPT/HCPCS: 19325; 15877; 15830; 15847; 15836; 80307; A9270; J0171; J0690; J1100; J1170; J1200; J1580; J2250; J2405; J2550; J2704; J3010; J7120

== ENCOUNTER 2023-05-26 19:34 | Outpatient (NON) | payer OTHER, SELFPAY | END 2023-05-26 19:35 | disposition home or self-care (01) | LOC: ANHLAB 19:36 | PROVIDERS: PCP Nurse Practitioner; Visit Provider Surgery Plastic and Reconstructive Surgery | DX: S31.109D Unspecified open wound of abdominal wall, unspecified quadrant without penetration into peritoneal cavity, subsequent encounter (principal); X58.XXXD Exposure to other specified factors, subsequent encounter | CPT/HCPCS: 87070; 87075; 87076; 87185; 87205 ==